=== PATIENT | male | born 1965 | race Two or more races ===

== ENCOUNTER 2021-04-20 12:29 | Emergency (ER) | payer OTHER ==
[~2021-04-20] VITALS: Ht 172.7 cm; Wt 82.5 kg
[2021-04-20 12:34] VITALS: BP 160/90
[2021-04-20 13:24] LABS: BASOPHILS % (AUTO) 1 % (0-1); EOSINOPHILS % (AUTO) 0 % (1-7); LYMPHOCYTES % (AUTO) 8 % (22-44); MEAN CORPUSCULAR HEMOGLOBIN 30.7 pg (27.5-34.5); MEAN CORPUSCULAR HGB CONC 34.2 g/dL (33.2-36.2); MEAN PLATELET VOLUME 8.7 fL (7.4-10.4); MONOCYTES % (AUTO) 3 % (2-9); NEUTROPHILS % (AUTO) 89 % (42-75); PLATELET COUNT 278 x10^3/uL (130-400); RED BLOOD COUNT 5.07 x10^6/uL (4.38-5.82); RED CELL DISTRIBUTION WIDTH 13.2 % (9.4-14.8)
[2021-04-20] MEDS ORDERED: ONDANSETRON ODT 4 MG PO ONE (13:30)
[2021-04-20] MEDS ORDERED: MAALOX/HYOSCYAMINE/LIDOCAINE 45 ML BTL PO ONE (13:30)
[2021-04-20] MEDS ORDERED: FAMOTIDINE 20 MG TABLET PO ONE (13:30)
[2021-04-20 13:38] LABS: ALANINE AMINOTRANSFERASE 28 U/L (12-78); ALBUMIN 3.9 g/dL (3.4-5.0); ANION GAP 6 mmol/L (5-15); CALCIUM 8.8 mg/dL (8.5-10.1); CHLORIDE 105 mmol/L (98-107)
[2021-04-20 13:41] LABS: ALKALINE PHOSPHATASE 56 U/L (45-117); BILIRUBIN,TOTAL 0.5 mg/dL (0.2-1.0); TOTAL PROTEIN 7.5 g/dL (6.4-8.2)
[2021-04-20] MEDS ORDERED: FAMOTIDINE 20 MG TABLET ONE (15:42)
[2021-04-20] MEDS ORDERED: ONDANSETRON ODT 4 MG ONE (15:43)
[2021-04-20] MEDS ORDERED: MAALOX/HYOSCYAMINE/LIDOCAINE 45 ML BTL ONE (15:43)
--- NOTE | 2021-04-20 15:45 | NUR ---
PT JUST BROUGHT BACK TO ROOM AND MEDICATED PER ORDERS. NEVILLE DAWN AT NOW. Addendum: 04/20/21 at 1600 by COLLEEN PT STATES HE TOOK SOME [place]A AT HOME. REPORTS EPIGASTRIC PAIN GONE NOW, NO COMPLAINTS.
--- NOTE | 2021-04-20 16:36 | NUR ---
D/C INSTRUCTIONS, MEDS & F/U APPT RV'WD WITH PT, HE VERBALIZES UNDERSTANDING. RX GIVEN X1. PT AMBULATED OUT OF ED WITH SPOUSE WITHOUT DIFFICULTY.
== END 2021-04-20 16:36 | disposition home or self-care (01) ==
LOC: ED 16:30
DX: K21.9 Gastro-esophageal reflux disease without esophagitis (principal); R94.31 Abnormal electrocardiogram [ECG] [EKG]
CPT/HCPCS: 36415; 80053; 83690; 85025; 93005; 99284; Q0162